=== PATIENT | male | born 1970 | race Caucasian/White ===

== ENCOUNTER 2024-11-05 13:37 | Emergency (ER) | payer MEDICAID ==
[~2024-11-05] VITALS: Ht 172.7 cm; Wt 68.2 kg
[~2024-11-05 13:37] MED LIST: CLON-527 PO; CYCL-1 PO; GABA-532 PO; HYDR-4353 PO; MODA200T48 PO; PRAM0.375 PO; ROPI2TAB53 PO
[2024-11-05 13:48] VITALS: TEMP 98.2
[2024-11-05 14:53] LABS: BASOPHILS % (AUTO) 0.5 % (0-1); EOSINOPHILS # (AUTO) 0.1 X10'3 (0-0.9); EOSINOPHILS % (AUTO) 1.6 % (0-6); HEMATOCRIT 43.7 % (42.0-52.0); HEMOGLOBIN 15.2 g/dl (14.0-17.9); LYMPHOCYTES # (AUTO) 1.3 X10'3 (1.1-4.8); LYMPHOCYTES % (AUTO) 16.5 % (21-51); MEAN CORPUSCULAR HEMOGLOBIN 36.7 PG (27.0-31.0); MEAN CORPUSCULAR HGB CONC 34.8 g/dL (33.0-36.5); MEAN CORPUSCULAR VOLUME 105.6 FL (78-98); MONOCYTES # (AUTO) 0.6 X10'3 (0-0.9); MONOCYTES % (AUTO) 6.9 % (2-12); NEUTROPHILS # (AUTO) 5.9 X10'3 (1.8-7.7); NEUTROPHILS % (AUTO) 74.5 % (42-75); PLATELET COUNT 378 X10'3 (140-440); RED BLOOD COUNT 4.13 X10'6 (4.70-6.10); RED CELL DISTRIBUTION WIDTH 17.4 % (11.5-14.5); WHITE BLOOD COUNT 7.9 X10'3 (4.5-11.0)
[2024-11-05 14:59] LABS: INR 1.1 INR
[2024-11-05 15:03] LABS: ALANINE AMINOTRANSFERASE 11 U/L (12-78); ALBUMIN/GLOBULIN RATIO 0.7 (1.1-1.5); ALKALINE PHOSPHATASE 102 IU/L (46-116); ANION GAP 12 (8-16); ASPARTATE AMINO TRANSFERASE 32 U/L (10-37); BILIRUBIN,TOTAL 0.5 MG/DL (0.1-1.0); BLOOD UREA NITROGEN 11 MG/DL (7-18); BUN/CREATININE RATIO 12.9 (10.0-20.0); CALCIUM 7.9 MG/DL (8.5-10.1); CHLORIDE 96 MMOL/L (99-107); CREATININE 0.85 MG/DL (0.60-1.10); GLUCOSE 156 MG/DL (70-104); POTASSIUM 4.2 MMOL/L (3.5-5.1); SODIUM 135 MMOL/L (135-145); TOTAL CARBON DIOXIDE 26.9 MMOL/L (24-32); TOTAL PROTEIN 7.6 G/DL (6.4-8.2); eCRCL 94 ML/MIN; eGFR > 90 ML/MIN
[2024-11-05 15:48] VITALS: BP 133/94; PULSE 103; RESP 15; O2SAT 98
== END 2024-11-05 15:49 | disposition home or self-care (01) ==
LOC: ER 13:38
DX: I82.813 Embolism and thrombosis of superficial veins of lower extremities, bilateral (principal); Z88.6 Allergy status to analgesic agent; Z79.1 Long term (current) use of non-steroidal anti-inflammatories (NSAID); Z79.899 Other long term (current) drug therapy; Z86.718 Personal history of other venous thrombosis and embolism; Z86.711 Personal history of pulmonary embolism
CPT/HCPCS: 36415; 80053; 85025; 85610; 93970; 99284

== ENCOUNTER 2024-11-09 09:31 | Inpatient (IN) | payer MEDICAID ==
[~2024-11-09] VITALS: Ht 177.8 cm; Wt 73.4 kg
[2024-11-09] MEDS ORDERED: iohexol 350MG/ML 100ml bottle IV ONE ×2 (09:35→11:50)
[2024-11-09] MEDS: LORazepam 2 mg/ml vial IV ONE ×3 (09:43→12:55)
[2024-11-09 09:50] LABS: BASOPHILS # (AUTO) 0.2 X10'3 (0-0.2); BASOPHILS % (AUTO) 1.3 % (0-1); EOSINOPHILS # (AUTO) 0.6 X10'3 (0-0.9); EOSINOPHILS % (AUTO) 4.3 % (0-6); HEMATOCRIT 49.6 % (42.0-52.0); LYMPHOCYTES # (AUTO) 3.8 X10'3 (1.1-4.8); MEAN CORPUSCULAR HEMOGLOBIN 35.5 PG (27.0-31.0); MEAN CORPUSCULAR HGB CONC 32.2 g/dL (33.0-36.5); MEAN CORPUSCULAR VOLUME 110.1 FL (78-98); MEAN PLATELET VOLUME 7.6 FL (7.4-10.4); MONOCYTES # (AUTO) 0.9 X10'3 (0-0.9); MONOCYTES % (AUTO) 6.2 % (2-12); NEUTROPHILS # (AUTO) 9.1 X10'3 (1.8-7.7); NEUTROPHILS % (AUTO) 62.2 % (42-75); PLATELET COUNT 311 X10'3 (140-440); RED BLOOD COUNT 4.51 X10'6 (4.70-6.10); RED CELL DISTRIBUTION WIDTH 17.6 % (11.5-14.5); WHITE BLOOD COUNT 14.7 X10'3 (4.5-11.0)
[2024-11-09 10:06] LABS: ALBUMIN 3.2 G/DL (3.4-5.0); ANION GAP 28 (8-16); BLOOD UREA NITROGEN 12 MG/DL (7-18); BUN/CREATININE RATIO 13.6 (10.0-20.0); CALCIUM 8.8 MG/DL (8.5-10.1); CHLORIDE 97 MMOL/L (99-107); CREATININE 0.88 MG/DL (0.60-1.10); GLUCOSE 117 MG/DL (70-104); POTASSIUM 3.5 MMOL/L (3.5-5.1); SODIUM 140 MMOL/L (135-145); TOTAL CARBON DIOXIDE 15.4 MMOL/L (24-32); eCRCL 97 ML/MIN; eGFR 90 ML/MIN
[2024-11-09 10:07] LABS: APTT 27 SECONDS (22-32); PROTHROMBIN TIME 10.9 SECONDS (9.0-12.0)
[2024-11-09 10:52] LABS: ANISOCYTOSIS 1+; PLATELET ESTIMATE NORMAL
[2024-11-09 10:59] LABS: ETHANOL 123 MG/DL (<10)
[2024-11-09] MEDS ORDERED: enoxaparin 100mg/ml syringe SUBCUT ONE (11:25)
[2024-11-09] MEDS: enoxaparin 80mg/0.8ml syringe SUBCUT ONE (11:30)
[2024-11-09 12:21] LABS: D-DIMER > 35.20 MG/L FEU (0-0.50)
[2024-11-09] MEDS ORDERED: magnesium sulf-water 4G/100mL 100 ML IV PRN (12:45)
[2024-11-09] MEDS ORDERED: mag hydrox/Alum hydrox/simeth 30ml oral suspension PO PRN (12:45)
[2024-11-09] MEDS ORDERED: potassium Cl 20 mEq SR tablet PO PRN (12:45)
[2024-11-09] MEDS ORDERED: potassium Cl 40MEQ/1/2NS 520ml 520 ML IV PRN (12:45)
[2024-11-09] MEDS: folic acid 1mg tablet PO SCH (12:45)
[2024-11-09] MEDS ORDERED: magnesium Cl slow-release 64mg tablet PO PRN (12:45)
[2024-11-09] MEDS ORDERED: dextrose 50%-water 50ml dispensing syringe IV PRN (12:45)
[2024-11-09] MEDS ORDERED: magnesium hydroxide 30ml (MOM) UD suspension PO PRN (12:45)
[2024-11-09] MEDS ORDERED: magnesium sulf-water 2g/50mL 50 ML IV PRN (12:45)
[2024-11-09] MEDS ORDERED: ondansetron/PF 4mg/2ml inj IV PRN (12:45)
[2024-11-09 13:10] LABS: ALANINE AMINOTRANSFERASE 14 U/L (12-78); ALBUMIN 2.9 G/DL (3.4-5.0); ALBUMIN/GLOBULIN RATIO 0.6 (1.1-1.5); ALKALINE PHOSPHATASE 105 IU/L (46-116); ANION GAP 19 (8-16); ASPARTATE AMINO TRANSFERASE 40 U/L (10-37); BILIRUBIN,TOTAL 0.5 MG/DL (0.1-1.0); BLOOD UREA NITROGEN 11 MG/DL (7-18); BUN/CREATININE RATIO 13.4 (10.0-20.0); CHLORIDE 97 MMOL/L (99-107); CREATININE 0.82 MG/DL (0.60-1.10); GLUCOSE 105 MG/DL (70-104); LIPASE 26 U/L (16-77); MAGNESIUM 1.7 MG/DL (1.5-2.4); POTASSIUM 4.3 MMOL/L (3.5-5.1); SODIUM 136 MMOL/L (135-145); TOTAL PROTEIN 7.4 G/DL (6.4-8.2); eCRCL 104 ML/MIN; eGFR > 90 ML/MIN
[2024-11-09] MEDS: metoprolol tartrate 25mg tablet PO SCH (13:20)
[2024-11-09] MEDS: PERFLUTREN PROTEIN-A MICROSPHR (Optison) 0.22 MG/ML 3ML VIAL IV ONE (13:25)
[2024-11-09] MEDS: MESSAGE TO NURSING IV ONE (13:35)
[2024-11-09] MEDS ORDERED: cloNIDine 0.1 mg tablet PO PRN (13:40)
[2024-11-09 13:42] LABS: ABG BASE EXCESS -7.8 mmol/L (-2.0-3.0); ABG HCO3 16.7 mmol/L (21.0-28.0); ABG OXYGEN SATURATION 92.6 % (94.0-98.0); ABG PCO2 (T) 31.8 mmHg (35.0-48.0); ABG PH (T) 7.339 (7.350-7.450); ABG PO2 (T) 72.3 mmHg (83.0-108.0); ALLEN'S TEST Modified; FCOHb 0.2 % (0.5-1.5); FHHb 7.4 % (0.0-5.0); FLOW 3 L/min; FMetHb 0.3 % (0.0-1.5); FO2Hb 92.1 % (94.0-98.0); MODE NASAL CANNULA; TOTAL HEMOGLOBIN 15.2 G/dl (13.5-17.5)
[2024-11-09] MEDS: normal saline 1000ml 1,000 ML IV SCH ×2 (13:43→14:15)
[2024-11-09] MEDS: heparin 10,000 units/1 ML INJ IV ONE (13:52)
[2024-11-09 13:53] LABS: BASOPHILS # (AUTO) 0.1 X10'3 (0-0.2); BASOPHILS % (AUTO) 0.5 % (0-1); EOSINOPHILS % (AUTO) 0.1 % (0-6); HEMATOCRIT 44.4 % (42.0-52.0); HEMOGLOBIN 14.9 g/dl (14.0-17.9); LYMPHOCYTES # (AUTO) 0.9 X10'3 (1.1-4.8); MEAN CORPUSCULAR HEMOGLOBIN 36.1 PG (27.0-31.0); MEAN CORPUSCULAR HGB CONC 33.4 g/dL (33.0-36.5); MEAN CORPUSCULAR VOLUME 107.9 FL (78-98); MEAN PLATELET VOLUME 7.5 FL (7.4-10.4); MONOCYTES # (AUTO) 0.6 X10'3 (0-0.9); MONOCYTES % (AUTO) 5.2 % (2-12); NEUTROPHILS # (AUTO) 9.2 X10'3 (1.8-7.7); NEUTROPHILS % (AUTO) 86.2 % (42-75); PLATELET COUNT 249 X10'3 (140-440); RED BLOOD COUNT 4.12 X10'6 (4.70-6.10); RED CELL DISTRIBUTION WIDTH 17.3 % (11.5-14.5); WHITE BLOOD COUNT 10.7 X10'3 (4.5-11.0)
[2024-11-09] MEDS: heparin 25,000 UNIT/250ml bag 250 ML IV PRN (13:53)
[2024-11-09] MEDS: thiamine 100mg/ml 2ml inj. IV SCH (13:54)
[2024-11-09] MEDS: cyanocobalamin 500mcg tablet PO SCH (14:10)
[2024-11-09 14:20] VITALS: PULSE 129; RESP 18; O2SAT 97
[2024-11-09] MEDS ORDERED: labetalol 20mg/4ml (5mg/ml) syringe IV PRN (14:20)
[2024-11-09 14:25] LABS: BILIRUBIN,URINE NEGATIVE (Neg); CLARITY,URINE SLIGHTLY CLOUDY (Clear); COLOR,URINE YELLOW (Yellow); GLUCOSE, URINE NEGATIVE (Neg); KETONES,URINE 15 mg/dl (Neg); LEUKOCYTE ESTERASE ,URINE NEGATIVE (Neg); NITRITES, URINE NEGATIVE (Neg); OCCULT BLOOD,URINE TRACE-INTACT (Neg); PH,URINE 5.5 (4.8-8.0); PROTEIN,URINE TRACE mg/dl (Neg); UROBILINOGEN,URINE 0.2 E.U/dL (0.2-1.0)
[2024-11-09 14:34] LABS: URINE AMPHETAMINE SCREEN NEGATIVE (Neg); URINE BARBITUATE SCREEN NEGATIVE (Neg); URINE BENZODIAZEPINES SCREEN NEGATIVE (Neg); URINE CANNABINOID SCREEN POSITIVE (Neg); URINE COCAINE SCREEN NEGATIVE (Neg); URINE METHADONE SCREEN NEGATIVE (Neg); URINE OPIATE SCREEN NEGATIVE (Neg); URINE PHENCYCLIDINE SCREEN NEGATIVE (Neg)
[2024-11-09] MEDS: LORazepam 2 mg/ml vial IV PRN ×2 (14:41→22:52)
[2024-11-09 15:04] LABS: UA COLLECTION TYPE NON-SPECIFIED
[2024-11-09 15:07] LABS: BACTERIA,URINE NONE SEEN /HPF (Neg); RBC,URINE 0-2 /HPF (0-2); SQUAMOUS EPITHELIAL CELL,UR NONE SEEN /LPF (FEW); WBC,URINE 0-4 /HPF (0-4)
[2024-11-09 16:45] VITALS: BP 151/106; PULSE 107; RESP 28; TEMP 98.3; O2SAT 97
[2024-11-09 18:00] VITALS: BP 146/100; PULSE 104; RESP 25; TEMP 97.6; O2SAT 98
[2024-11-09] MEDS: nicotine 14mg patch - 24hr TD ONE (18:02)
[2024-11-09 20:00] VITALS: RESP 25; O2SAT 98
[2024-11-09] MEDS ORDERED: docusate sod 100mg capsule PO SCH (20:00)
[2024-11-09] MEDS: K and/or MAG REPLACEMENT MC SCH (20:00)
[2024-11-09] MEDS: normal saline 1000ml 1,000 ML IV ONE (21:23)
[2024-11-09 22:00] VITALS: BP 155/105; PULSE 103; RESP 26; TEMP 97.2; O2SAT 95
[2024-11-10] VITALS (10 sets, daily range): BP systolic 118–150; BP diastolic 87–109; PULSE 79–123; RESP 12–28; TEMP 97–98.7; O2SAT 93–99
[2024-11-10] MEDS: heparin 10,000 units/1 ML INJ IV PRN (00:27)
[2024-11-10] MEDS: MESSAGE TO NURSING IV ONE ×4 (01:07→20:10)
[2024-11-10 06:58] LABS: BASOPHILS % (AUTO) 0.6 % (0-1); EOSINOPHILS # (AUTO) 0.1 X10'3 (0-0.9); EOSINOPHILS % (AUTO) 1.4 % (0-6); HEMATOCRIT 39.3 % (42.0-52.0); HEMOGLOBIN 13.4 g/dl (14.0-17.9); LYMPHOCYTES # (AUTO) 0.7 X10'3 (1.1-4.8); LYMPHOCYTES % (AUTO) 9.3 % (21-51); MEAN CORPUSCULAR HGB CONC 34.1 g/dL (33.0-36.5); MEAN CORPUSCULAR VOLUME 105.5 FL (78-98); MEAN PLATELET VOLUME 7.8 FL (7.4-10.4); MONOCYTES # (AUTO) 0.5 X10'3 (0-0.9); MONOCYTES % (AUTO) 6.4 % (2-12); NEUTROPHILS # (AUTO) 6.6 X10'3 (1.8-7.7); NEUTROPHILS % (AUTO) 82.3 % (42-75); PLATELET COUNT 191 X10'3 (140-440); RED BLOOD COUNT 3.73 X10'6 (4.70-6.10)
[2024-11-10 07:04] LABS: ALANINE AMINOTRANSFERASE 11 U/L (12-78); ALBUMIN 2.4 G/DL (3.4-5.0); ALBUMIN/GLOBULIN RATIO 0.7 (1.1-1.5); ALKALINE PHOSPHATASE 91 IU/L (46-116); ANION GAP 7 (8-16); ASPARTATE AMINO TRANSFERASE 26 U/L (10-37); BILIRUBIN,TOTAL 0.8 MG/DL (0.1-1.0); BLOOD UREA NITROGEN 5 MG/DL (7-18); BUN/CREATININE RATIO 6.9 (10.0-20.0); CALCIUM 7.6 MG/DL (8.5-10.1); CHLORIDE 106 MMOL/L (99-107); CHOL/HDL RATIO 1.3 (0.00-4.99); CHOLESTEROL 128 MG/DL (0-200); CREATININE 0.72 MG/DL (0.60-1.10); GLUCOSE 111 MG/DL (70-104); HDL CHOLESTEROL 95 MG/DL (35-60); LDL CHOLESTEROL 22 MG/DL (50-100); MAGNESIUM 1.7 MG/DL (1.5-2.4); PHOSPHORUS 2.1 MG/DL (2.3-4.5); POTASSIUM 3.5 MMOL/L (3.5-5.1); SODIUM 142 MMOL/L (135-145); TRIGLYCERIDES 30 MG/DL (20-135); eCRCL 118 ML/MIN; eGFR > 90 ML/MIN
[2024-11-10] MEDS ORDERED: folic acid 1mg/0.2ml inj IV SCH (08:00)
[2024-11-10 11:20] LABS: ABG BASE EXCESS 3.2 mmol/L (-2.0-3.0); ABG HCO3 25.3 mmol/L (21.0-28.0); ABG OXYGEN SATURATION 98.2 % (94.0-98.0); ABG PCO2 (T) 31.3 mmHg (35.0-48.0); ABG PH (T) 7.525 (7.350-7.450); ABG PO2 (T) 90.1 mmHg (83.0-108.0); ALLEN'S TEST POSITIVE; FCOHb 0.6 % (0.5-1.5); FHHb 1.8 % (0.0-5.0); FLOW 4 L/min; FO2Hb 97.6 % (94.0-98.0); MODE NASAL CANNULA; TOTAL HEMOGLOBIN 14.4 G/dl (13.5-17.5)
[2024-11-10] MEDS: lactose-reduced food (Ensure Enlive) - 237ml bottle PO SCH (18:00)
[2024-11-10] MEDS: haloperidol lactate 5mg/ml inj IM PRN (22:57)
[2024-11-11] VITALS (7 sets, daily range): BP systolic 104–145; BP diastolic 93–104; PULSE 82–110; RESP 15–22; TEMP 97.7–98.7; O2SAT 95–98
[2024-11-11 03:23] LABS: BASOPHILS # (AUTO) 0.1 X10'3 (0-0.2); BASOPHILS % (AUTO) 0.7 % (0-1); EOSINOPHILS # (AUTO) 0.1 X10'3 (0-0.9); EOSINOPHILS % (AUTO) 1.1 % (0-6); HEMATOCRIT 42.9 % (42.0-52.0); HEMOGLOBIN 14.7 g/dl (14.0-17.9); LYMPHOCYTES # (AUTO) 1.8 X10'3 (1.1-4.8); LYMPHOCYTES % (AUTO) 17.3 % (21-51); MEAN CORPUSCULAR HEMOGLOBIN 36.2 PG (27.0-31.0); MEAN CORPUSCULAR HGB CONC 34.3 g/dL (33.0-36.5); MEAN CORPUSCULAR VOLUME 105.7 FL (78-98); MEAN PLATELET VOLUME 8.2 FL (7.4-10.4); MONOCYTES # (AUTO) 0.8 X10'3 (0-0.9); MONOCYTES % (AUTO) 7.8 % (2-12); NEUTROPHILS # (AUTO) 7.5 X10'3 (1.8-7.7); NEUTROPHILS % (AUTO) 73.1 % (42-75); PLATELET COUNT 186 X10'3 (140-440); RED BLOOD COUNT 4.06 X10'6 (4.70-6.10); RED CELL DISTRIBUTION WIDTH 17.1 % (11.5-14.5); WHITE BLOOD COUNT 10.3 X10'3 (4.5-11.0)
[2024-11-11 03:38] LABS: ALANINE AMINOTRANSFERASE 15 U/L (12-78); ALBUMIN 2.6 G/DL (3.4-5.0); ALBUMIN/GLOBULIN RATIO 0.6 (1.1-1.5); ALKALINE PHOSPHATASE 104 IU/L (46-116); ANION GAP 9 (8-16); ASPARTATE AMINO TRANSFERASE 32 U/L (10-37); BILIRUBIN,TOTAL 0.6 MG/DL (0.1-1.0); BLOOD UREA NITROGEN 4 MG/DL (7-18); BUN/CREATININE RATIO 5.3 (10.0-20.0); CALCIUM 8.7 MG/DL (8.5-10.1); CHLORIDE 104 MMOL/L (99-107); CREATININE 0.75 MG/DL (0.60-1.10); GLUCOSE 96 MG/DL (70-104); MAGNESIUM 1.8 MG/DL (1.5-2.4); PHOSPHORUS 2.7 MG/DL (2.3-4.5); POTASSIUM 3.5 MMOL/L (3.5-5.1); SODIUM 140 MMOL/L (135-145); TOTAL CARBON DIOXIDE 27.1 MMOL/L (24-32); TOTAL PROTEIN 6.8 G/DL (6.4-8.2); eCRCL 114 ML/MIN; eGFR > 90 ML/MIN
[2024-11-11] MEDS ORDERED: Neutra Phos packet PO PRN (05:00)
[2024-11-11] MEDS ORDERED: sodium phosphate inj. 15 MMOL in dextrose 5%-water 250 ML IV PRN (05:00)
[2024-11-11] MEDS ORDERED: sodium phosphate inj. 30 MMOL in dextrose 5%-water 250 ML IV PRN (05:00)
[2024-11-11] MEDS: MESSAGE TO NURSING IV ONE ×3 (05:43→19:40)
[2024-11-11] MEDS ORDERED: haloperidol lactate 5mg/ml inj IM PRN (11:00)
[2024-11-11] MEDS ORDERED: LORazepam 1 MG tablet PO PRN (11:00)
[2024-11-11] MEDS ORDERED: LORazepam 2 mg/ml vial IV PRN ×2 (11:00→19:55)
[2024-11-11 11:10] LABS: FOLATE SERUM(FOLIC) 5.3 ng/mL (>3.0)
[2024-11-11] MEDS: LORazepam 1 MG tablet PO PRN (17:27)
[2024-11-11] MEDS: haloperidol 5mg tablet PO PRN (17:27)
[2024-11-11] MEDS: folic acid 1mg tablet PO SCH (19:55)
[2024-11-11] MEDS: thiamine 100mg tablet PO SCH (19:55)
[2024-11-11] MEDS ORDERED: dextrose 50%-water 50ml dispensing syringe IV PRN (19:55)
[2024-11-11] MEDS: thiamine 100mg/ml 2ml inj. IV SCH (21:44)
[2024-11-11] MEDS: LORazepam 2 mg/ml vial IV PRN (23:38)
[2024-11-12] VITALS (7 sets, daily range): BP systolic 139–157; BP diastolic 72–99; PULSE 75–119; RESP 13–26; TEMP 97.6–98.8; O2SAT 93–98
[2024-11-12] MEDS: LORazepam 2 mg/ml vial IV PRN (01:38)
[2024-11-12 02:46] LABS: INR 1.1 INR; PROTHROMBIN TIME 11.9 SECONDS (9.0-12.0)
[2024-11-12] MEDS: MESSAGE TO NURSING IV ONE ×2 (03:01→07:00)
[2024-11-12 06:26] LABS: BASOPHILS # (AUTO) 0.1 X10'3 (0-0.2); BASOPHILS % (AUTO) 0.6 % (0-1); EOSINOPHILS # (AUTO) 0.1 X10'3 (0-0.9); EOSINOPHILS % (AUTO) 1.4 % (0-6); HEMOGLOBIN 14.4 g/dl (14.0-17.9); LYMPHOCYTES # (AUTO) 1.9 X10'3 (1.1-4.8); LYMPHOCYTES % (AUTO) 20.7 % (21-51); MEAN CORPUSCULAR HEMOGLOBIN 36.3 PG (27.0-31.0); MEAN CORPUSCULAR HGB CONC 34.3 g/dL (33.0-36.5); MEAN CORPUSCULAR VOLUME 105.8 FL (78-98); MEAN PLATELET VOLUME 8.4 FL (7.4-10.4); MONOCYTES # (AUTO) 0.8 X10'3 (0-0.9); MONOCYTES % (AUTO) 8.6 % (2-12); NEUTROPHILS # (AUTO) 6.4 X10'3 (1.8-7.7); NEUTROPHILS % (AUTO) 68.7 % (42-75); PLATELET COUNT 201 X10'3 (140-440); RED BLOOD COUNT 3.97 X10'6 (4.70-6.10); RED CELL DISTRIBUTION WIDTH 16.6 % (11.5-14.5); WHITE BLOOD COUNT 9.4 X10'3 (4.5-11.0)
[2024-11-12 06:45] LABS: ALANINE AMINOTRANSFERASE 17 U/L (12-78); ALBUMIN 2.6 G/DL (3.4-5.0); ALBUMIN/GLOBULIN RATIO 0.7 (1.1-1.5); ALKALINE PHOSPHATASE 85 IU/L (46-116); AMYLASE 32 U/L (25-115); ANION GAP 10 (8-16); ASPARTATE AMINO TRANSFERASE 38 U/L (10-37); BILIRUBIN,TOTAL 0.8 MG/DL (0.1-1.0); BLOOD UREA NITROGEN 2 MG/DL (7-18); BUN/CREATININE RATIO 2.5 (10.0-20.0); CALCIUM 8.1 MG/DL (8.5-10.1); CHLORIDE 103 MMOL/L (99-107); CREATININE 0.79 MG/DL (0.60-1.10); GLUCOSE 104 MG/DL (70-104); LIPASE 20 U/L (16-77); MAGNESIUM 1.5 MG/DL (1.5-2.4); PHOSPHORUS 2.5 MG/DL (2.3-4.5); POTASSIUM 3.2 MMOL/L (3.5-5.1); SODIUM 138 MMOL/L (135-145); TOTAL CARBON DIOXIDE 25.3 MMOL/L (24-32); TOTAL PROTEIN 6.6 G/DL (6.4-8.2); eCRCL 108 ML/MIN; eGFR > 90 ML/MIN
[2024-11-12] MEDS: folic acid 1mg/0.2ml inj IV SCH (07:47)
[2024-11-12] MEDS: potassium Cl 20 mEq SR tablet PO PRN ×2 (11:57→18:49)
[2024-11-12] MEDS: apixaban 5mg tablet PO SCH (11:57)
[2024-11-12] MEDS: dextrose 5%-1/2 normal saline 1,000 ML IV SCH (12:03)
[2024-11-12] MEDS ORDERED: potassium Cl 40MEQ/1/2NS 520ml 520 ML IV PRN (14:20)
[2024-11-12] MEDS ORDERED: potassium Cl 20 mEq SR tablet PO PRN (14:20)
[2024-11-13 02:00] VITALS: BP 110/59; PULSE 107; RESP 18; TEMP 98.5; O2SAT 99
[2024-11-13 06:00] VITALS: BP 155/65; PULSE 107; RESP 18; TEMP 98.3; O2SAT 99
[2024-11-13 07:28] LABS: BASOPHILS # (AUTO) 0.1 X10'3 (0-0.2); BASOPHILS % (AUTO) 0.6 % (0-1); EOSINOPHILS # (AUTO) 0.2 X10'3 (0-0.9); EOSINOPHILS % (AUTO) 2.1 % (0-6); HEMATOCRIT 43.1 % (42.0-52.0); HEMOGLOBIN 14.5 g/dl (14.0-17.9); LYMPHOCYTES # (AUTO) 1.7 X10'3 (1.1-4.8); MEAN CORPUSCULAR HEMOGLOBIN 35.9 PG (27.0-31.0); MEAN CORPUSCULAR HGB CONC 33.7 g/dL (33.0-36.5); MEAN CORPUSCULAR VOLUME 106.5 FL (78-98); MEAN PLATELET VOLUME 8.4 FL (7.4-10.4); MONOCYTES # (AUTO) 0.9 X10'3 (0-0.9); MONOCYTES % (AUTO) 9.7 % (2-12); NEUTROPHILS # (AUTO) 6.6 X10'3 (1.8-7.7); NEUTROPHILS % (AUTO) 69.6 % (42-75); PLATELET COUNT 225 X10'3 (140-440); RED BLOOD COUNT 4.04 X10'6 (4.70-6.10); RED CELL DISTRIBUTION WIDTH 16.7 % (11.5-14.5); WHITE BLOOD COUNT 9.5 X10'3 (4.5-11.0)
[2024-11-13 07:32] LABS: INR 1.2 INR; PROTHROMBIN TIME 12.4 SECONDS (9.0-12.0)
[2024-11-13 07:55] LABS: ALANINE AMINOTRANSFERASE 15 U/L (12-78); ALBUMIN 2.7 G/DL (3.4-5.0); ALBUMIN/GLOBULIN RATIO 0.6 (1.1-1.5); ALKALINE PHOSPHATASE 87 IU/L (46-116); AMYLASE 37 U/L (25-115); ANION GAP 10 (8-16); ASPARTATE AMINO TRANSFERASE 34 U/L (10-37); BILIRUBIN,TOTAL 0.7 MG/DL (0.1-1.0); BLOOD UREA NITROGEN 6 MG/DL (7-18); BUN/CREATININE RATIO 6.7 (10.0-20.0); CALCIUM 8.7 MG/DL (8.5-10.1); CHLORIDE 103 MMOL/L (99-107); CREATININE 0.89 MG/DL (0.60-1.10); GLUCOSE 101 MG/DL (70-104); LIPASE 26 U/L (16-77); MAGNESIUM 1.6 MG/DL (1.5-2.4); POTASSIUM 3.5 MMOL/L (3.5-5.1); SODIUM 137 MMOL/L (135-145); TOTAL PROTEIN 7.1 G/DL (6.4-8.2); eCRCL 96 ML/MIN; eGFR 88 ML/MIN
[2024-11-13 11:00] VITALS: BP 149/102; PULSE 108; RESP 18; TEMP 98; O2SAT 99
[2024-11-13] MEDS: multivitamins, therapeutics tablet PO SCH (14:50)
[2024-11-13] MEDS: ferrous sulfate 325mg tablet PO SCH (14:51)
[2024-11-13 15:00] VITALS: BP 141/93; PULSE 102; RESP 20; TEMP 98; O2SAT 92
[2024-11-13 18:00] VITALS: BP 105/74; PULSE 101; RESP 21; TEMP 97.6; O2SAT 96
[2024-11-13 22:00] VITALS: BP 107/76; PULSE 87; RESP 16; TEMP 98.7; O2SAT 97
[2024-11-14] VITALS (7 sets, daily range): BP systolic 118–179; BP diastolic 83–88; PULSE 84–92; RESP 18–22; TEMP 97.6–98.5; O2SAT 94–98
[2024-11-14 06:14] LABS: BASOPHILS # (AUTO) 0.1 X10'3 (0-0.2); BASOPHILS % (AUTO) 0.6 % (0-1); EOSINOPHILS # (AUTO) 0.4 X10'3 (0-0.9); HEMOGLOBIN 14.1 g/dl (14.0-17.9); LYMPHOCYTES # (AUTO) 1.6 X10'3 (1.1-4.8); LYMPHOCYTES % (AUTO) 17.2 % (21-51); MEAN CORPUSCULAR HEMOGLOBIN 36.4 PG (27.0-31.0); MEAN CORPUSCULAR HGB CONC 34.4 g/dL (33.0-36.5); MEAN PLATELET VOLUME 8.2 FL (7.4-10.4); MONOCYTES # (AUTO) 1.2 X10'3 (0-0.9); MONOCYTES % (AUTO) 12.4 % (2-12); NEUTROPHILS # (AUTO) 6.2 X10'3 (1.8-7.7); NEUTROPHILS % (AUTO) 65.8 % (42-75); PLATELET COUNT 240 X10'3 (140-440); RED BLOOD COUNT 3.87 X10'6 (4.70-6.10); RED CELL DISTRIBUTION WIDTH 16.6 % (11.5-14.5); WHITE BLOOD COUNT 9.5 X10'3 (4.5-11.0)
[2024-11-14 06:25] LABS: INR 1.1 INR; PROTHROMBIN TIME 11.9 SECONDS (9.0-12.0)
[2024-11-14 07:18] LABS: ALANINE AMINOTRANSFERASE 19 U/L (12-78); ALBUMIN 2.6 G/DL (3.4-5.0); ALBUMIN/GLOBULIN RATIO 0.7 (1.1-1.5); ALKALINE PHOSPHATASE 76 IU/L (46-116); AMYLASE 37 U/L (25-115); ANION GAP 11 (8-16); ASPARTATE AMINO TRANSFERASE 29 U/L (10-37); BILIRUBIN,TOTAL 0.5 MG/DL (0.1-1.0); BLOOD UREA NITROGEN 9 MG/DL (7-18); BUN/CREATININE RATIO 10.5 (10.0-20.0); CALCIUM 8.9 MG/DL (8.5-10.1); CHLORIDE 102 MMOL/L (99-107); CREATININE 0.86 MG/DL (0.60-1.10); GLUCOSE 92 MG/DL (70-104); LIPASE 33 U/L (16-77); POTASSIUM 3.7 MMOL/L (3.5-5.1); SODIUM 137 MMOL/L (135-145); TOTAL CARBON DIOXIDE 24.2 MMOL/L (24-32); TOTAL PROTEIN 6.6 G/DL (6.4-8.2); eCRCL 99 ML/MIN; eGFR > 90 ML/MIN
[2024-11-14] MEDS ORDERED: LORazepam 1 MG tablet PO PRN (18:00)
[2024-11-14] MEDS: LORazepam 2 mg/ml vial IV PRN (20:42)
[2024-11-15] VITALS (7 sets, daily range): BP systolic 103–149; BP diastolic 68–95; PULSE 79–98; RESP 16–20; TEMP 97.2–98.4; O2SAT 96–98
[2024-11-15] MEDS: haloperidol lactate 5mg/ml inj IM PRN (01:41)
[2024-11-15 06:24] LABS: INR 1.1 INR; PROTHROMBIN TIME 11.4 SECONDS (9.0-12.0)
[2024-11-15 07:24] LABS: MAGNESIUM 2.1 MG/DL (1.5-2.4); PHOSPHORUS 3.5 MG/DL (2.3-4.5)
[2024-11-15] MEDS: thiamine 100mg tablet PO SCH (09:06)
[2024-11-16] VITALS (7 sets, daily range): BP systolic 103–124; BP diastolic 70–86; PULSE 74–89; RESP 8–18; TEMP 97.4–99.3; O2SAT 95–99
[2024-11-16 06:41] LABS: INR 1.1 INR
[2024-11-16 07:14] LABS: AMYLASE 58 U/L (25-115); LIPASE 60 U/L (16-77); MAGNESIUM 2.1 MG/DL (1.5-2.4); PHOSPHORUS 3.7 MG/DL (2.3-4.5)
[2024-11-16 07:18] LABS: BASOPHILS # (AUTO) 0.1 X10'3 (0-0.2); BASOPHILS % (AUTO) 1.2 % (0-1); EOSINOPHILS # (AUTO) 0.7 X10'3 (0-0.9); EOSINOPHILS % (AUTO) 9.3 % (0-6); HEMATOCRIT 40.9 % (42.0-52.0); HEMOGLOBIN 13.4 g/dl (14.0-17.9); LYMPHOCYTES # (AUTO) 1.7 X10'3 (1.1-4.8); LYMPHOCYTES % (AUTO) 21.6 % (21-51); MEAN CORPUSCULAR HEMOGLOBIN 35.9 PG (27.0-31.0); MEAN CORPUSCULAR HGB CONC 32.9 g/dL (33.0-36.5); MEAN CORPUSCULAR VOLUME 109.2 FL (78-98); MEAN PLATELET VOLUME 7.6 FL (7.4-10.4); MONOCYTES % (AUTO) 12.3 % (2-12); NEUTROPHILS # (AUTO) 4.4 X10'3 (1.8-7.7); NEUTROPHILS % (AUTO) 55.6 % (42-75); PLATELET COUNT 333 X10'3 (140-440); RED BLOOD COUNT 3.75 X10'6 (4.70-6.10); RED CELL DISTRIBUTION WIDTH 16.8 % (11.5-14.5); WHITE BLOOD COUNT 7.9 X10'3 (4.5-11.0)
[2024-11-16 07:35] LABS: ALANINE AMINOTRANSFERASE 21 U/L (12-78); ALBUMIN 2.2 G/DL (3.4-5.0); ALBUMIN/GLOBULIN RATIO 0.6 (1.1-1.5); ALKALINE PHOSPHATASE 72 IU/L (46-116); ANION GAP 7 (8-16); ASPARTATE AMINO TRANSFERASE 24 U/L (10-37); BILIRUBIN,TOTAL 0.2 MG/DL (0.1-1.0); BLOOD UREA NITROGEN 12 MG/DL (7-18); BUN/CREATININE RATIO 13.6 (10.0-20.0); CALCIUM 8.2 MG/DL (8.5-10.1); CHLORIDE 105 MMOL/L (99-107); CREATININE 0.88 MG/DL (0.60-1.10); GLUCOSE 121 MG/DL (70-104); POTASSIUM 3.6 MMOL/L (3.5-5.1); SODIUM 138 MMOL/L (135-145); TOTAL CARBON DIOXIDE 25.8 MMOL/L (24-32); TOTAL PROTEIN 6.1 G/DL (6.4-8.2); eCRCL 97 ML/MIN; eGFR 90 ML/MIN
[2024-11-16] MEDS: chlordiazePOXIDE 25mg capsule PO SCH (11:48)
[2024-11-16] MEDS: acetaminophen 325mg tablet PO PRN (23:49)
[2024-11-17] VITALS (10 sets, daily range): BP systolic 90–125; BP diastolic 58–93; PULSE 71–94; RESP 14–20; TEMP 96.7–97.5; O2SAT 92–100
[2024-11-17 08:44] LABS: BASOPHILS # (AUTO) 0.1 X10'3 (0-0.2); BASOPHILS % (AUTO) 1.2 % (0-1); EOSINOPHILS # (AUTO) 0.6 X10'3 (0-0.9); EOSINOPHILS % (AUTO) 7.7 % (0-6); HEMOGLOBIN 13.3 g/dl (14.0-17.9); LYMPHOCYTES # (AUTO) 1.9 X10'3 (1.1-4.8); LYMPHOCYTES % (AUTO) 24.1 % (21-51); MEAN CORPUSCULAR HEMOGLOBIN 35.5 PG (27.0-31.0); MEAN CORPUSCULAR HGB CONC 33.2 g/dL (33.0-36.5); MEAN CORPUSCULAR VOLUME 106.8 FL (78-98); MEAN PLATELET VOLUME 7.2 FL (7.4-10.4); MONOCYTES % (AUTO) 12.8 % (2-12); NEUTROPHILS # (AUTO) 4.2 X10'3 (1.8-7.7); NEUTROPHILS % (AUTO) 54.2 % (42-75); PLATELET COUNT 453 X10'3 (140-440); RED BLOOD COUNT 3.74 X10'6 (4.70-6.10); RED CELL DISTRIBUTION WIDTH 16.4 % (11.5-14.5); WHITE BLOOD COUNT 7.8 X10'3 (4.5-11.0)
[2024-11-17 09:17] LABS: ALANINE AMINOTRANSFERASE 27 U/L (12-78); ALBUMIN 2.6 G/DL (3.4-5.0); ALBUMIN/GLOBULIN RATIO 0.6 (1.1-1.5); ALKALINE PHOSPHATASE 69 IU/L (46-116); ANION GAP 6 (8-16); ASPARTATE AMINO TRANSFERASE 28 U/L (10-37); BILIRUBIN,TOTAL 0.3 MG/DL (0.1-1.0); BLOOD UREA NITROGEN 14 MG/DL (7-18); BUN/CREATININE RATIO 15.6 (10.0-20.0); CALCIUM 8.5 MG/DL (8.5-10.1); CHLORIDE 102 MMOL/L (99-107); GLUCOSE 87 MG/DL (70-104); POTASSIUM 3.7 MMOL/L (3.5-5.1); SODIUM 135 MMOL/L (135-145); TOTAL CARBON DIOXIDE 27.5 MMOL/L (24-32); TOTAL PROTEIN 6.7 G/DL (6.4-8.2); eCRCL 95 ML/MIN; eGFR 87 ML/MIN
[2024-11-17] MEDS ORDERED: APIX5TAB3 PO (10:35)
[2024-11-17] MEDS ORDERED: MULT-25 PO (10:35)
[2024-11-17] MEDS ORDERED: CHLO25CA10 PO (11:41)
[2024-11-18 02:00] VITALS: BP 102/58; PULSE 84; RESP 15; TEMP 98.4; O2SAT 98
[2024-11-18 07:09] VITALS: BP 137/82; PULSE 81; RESP 11; TEMP 98.6; O2SAT 98
[2024-11-18 11:00] VITALS: BP 93/40; PULSE 58; RESP 14; TEMP 98.2; O2SAT 100
[2024-11-18] MEDS ORDERED: APIX5TAB3 PO (13:04)
[2024-11-19] MEDS ORDERED: apixaban 5mg tablet PO SCH (20:00)
== END 2024-11-18 14:10 | disposition home or self-care (01) | DRG 134 ==
LOC: ER 09:32 → ED HOLD 12:53 → PCU 3S 16:33
PROVIDERS: ADMIT Internal Medicine; ATTEND Internal Medicine
PROC: B3251ZZ Computerized Tomography (CT Scan) of Bilateral Common Carotid Arteries using Low Osmolar Contrast (ICD-10-PCS; principal; 2024-11-09)
PROC: B32G1ZZ Computerized Tomography (CT Scan) of Bilateral Vertebral Arteries using Low Osmolar Contrast (ICD-10-PCS; 2024-11-09)
PROC: B3201ZZ Computerized Tomography (CT Scan) of Thoracic Aorta using Low Osmolar Contrast (ICD-10-PCS; 2024-11-09)
PROC: B32S1ZZ Computerized Tomography (CT Scan) of Right Pulmonary Artery using Low Osmolar Contrast (ICD-10-PCS; 2024-11-09)
PROC: B32T1ZZ Computerized Tomography (CT Scan) of Left Pulmonary Artery using Low Osmolar Contrast (ICD-10-PCS; 2024-11-09)
PROC: B32R1ZZ Computerized Tomography (CT Scan) of Intracranial Arteries using Low Osmolar Contrast (ICD-10-PCS; 2024-11-09)
PROC: B3281ZZ Computerized Tomography (CT Scan) of Bilateral Internal Carotid Arteries using Low Osmolar Contrast (ICD-10-PCS; 2024-11-09)
DX: I26.99 Other pulmonary embolism without acute cor pulmonale (principal); E43 Unspecified severe protein-calorie malnutrition; E87.29 Other acidosis; R65.10 Systemic inflammatory response syndrome (SIRS) of non-infectious origin without acute organ dysfunction; R56.9 Unspecified convulsions; F10.130 Alcohol abuse with withdrawal, uncomplicated; R32 Unspecified urinary incontinence; F17.210 Nicotine dependence, cigarettes, uncomplicated; Y90.6 Blood alcohol level of 120-199 mg/100 ml; D75.89 Other specified diseases of blood and blood-forming organs; R00.0 Tachycardia, unspecified; F10.129 Alcohol abuse with intoxication, unspecified; Z68.23 Body mass index [BMI] 23.0-23.9, adult; Z86.711 Personal history of pulmonary embolism; Z79.01 Long term (current) use of anticoagulants; Z88.8 Allergy status to other drugs, medicaments and biological substances; Z59.00 Homelessness unspecified; Z78.1 Physical restraint status
CPT/HCPCS: 36415; 36600; 70450; 70496; 70498; 70551; 71045; 71275; 76700; 80048; 80053; 80061; 80305; 80320; 81001; 82150; 82607; 82746; 82803; 83036; 83605; 83690; 83735; 84100; 84484; 85008; 85018; 85025; 85379; 85610; 85730; 86885; 86900; 86901; 87081; 92508; 92616; 93005; 93306; 93970; 94760; 97110; 97116; 97163; 99291; A4620; A5200; A6250; A6258; A6590; C1758; G0378; J1630; J1644; J1650; J2060; J3411; J3490; J7030; J7040; Q9967